=== PATIENT | male | born 1960 | race Caucasian/White ===

== ENCOUNTER 2021-06-16 10:04 | Observation (INO) | payer BC, OTHER ==
[2021-06-16 10:14] VITALS: BMI 30.1
[2021-06-16 12:15] LABS: BASO % 0.7 % (0-2.0); HEMATOCRIT 37.2 % (35.4-49); HEMOGLOBIN 12.3 GM/dL (11.7-16.9); LYMPH % 13.2 % (8-40); MCH 25.8 pg (25.7-33.7); MCHC 33.1 g/dl (32.0-35.9); MEAN CELL VOLUME 77.8 fl (80-96); MEAN PLT VOLUME 7.2 fl (7.5-11.1); MONO % 4.1 % (3.8-10.2); PLATELET COUNT 311 10^3/uL (134-434); RBC 4.78 M/mm3 (4.00-5.60); RDW 16.7 % (11.9-15.9); WHITE BLOOD COUNT 9.1 K/mm3 (4.0-10.0)
[2021-06-16] MEDS ORDERED: LORazepam 2 MG/ML SDV VIAL IVPUSH ONE (12:16)
[2021-06-16] MEDS ORDERED: LORazepam 2 MG/ML SDV VIAL ONE (12:21)
[2021-06-16 12:27] LABS: CHLORIDE 101 mmol/L (98-107); SODIUM 136 mmol/L (136-145)
[2021-06-16 12:30] LABS: CALCIUM 9.1 mg/dL (8.5-10.1)
[2021-06-16 12:31] LABS: ALBUMIN 3.8 g/dl (3.4-5.0); ANION GAP 4 MMOL/L (8-16); BLOOD UREA NITROGEN 9.9 mg/dL (7-18); CO2 30 mmol/L (21-32); GLUCOSE,RANDOM 97 mg/dL (74-106)
[2021-06-16 12:34] LABS: SGOT/AST 15 U/L (15-37); SGPT/ALT 19 U/L (13-61)
[2021-06-16 12:36] LABS: BILIRUBIN,TOTAL 0.9 mg/dL (0.2-1); TOT PROT 7.6 g/dl (6.4-8.2)
[2021-06-16 12:37] LABS: ALK PHOS 100 U/L (45-117)
[2021-06-16] MEDS ORDERED: ASPIRIN 81 MG CHEWABLE TABLETS PO ONE (12:55)
[2021-06-16] MEDS ORDERED: ASPIRIN 81 MG CHEWABLE TABLETS ONE (13:04)
[2021-06-16 14:12] LABS: CHOLESTEROL 215 mg/dL (50-200)
[2021-06-16 14:13] LABS: TRIGLYCERIDES 107 mg/dL (0-150)
[2021-06-16 14:14] LABS: LDL CHOLESTEROL (ONLY SJRH) 141 mg/dL (5-100)
[2021-06-16 14:15] LABS: HDL CHOLESTEROL 46 mg/dL (40-60)
[2021-06-16 14:17] LABS: N-TERMINAL BNP 163.9 pg/ml (5-125)
[2021-06-16] MEDS ORDERED: cloNIDine HCL 0.1 MG TABLET PO ONE (16:10)
[2021-06-16] MEDS ORDERED: SODIUM CHLORIDE 0.9% 500 ML INFUS.BAG IV ONE (16:12)
[2021-06-16] MEDS ORDERED: cloNIDine HCL 0.1 MG TABLET ONE (16:13)
[2021-06-16] MEDS ORDERED: SODIUM CHLORIDE 0.45% 1,000 ML IV SCH (16:30)
[2021-06-16 17:47] LABS: COCAINE, UR NEGATIVE (NEGATIVE); METHADONE, UR NEGATIVE (NEGATIVE); URINE AMPHETAMINES NEGATIVE (NEGATIVE); URINE BARBITURATES NEGATIVE (NEGATIVE)
[2021-06-16 17:48] LABS: PHENCYCLIDINE,URINE NEGATIVE (NEGATIVE)
[2021-06-16 18:02] LABS: OPIATES, URI POSITIVE (NEGATIVE); URINE BENZODIAZEPINES POSITIVE (NEGATIVE)
[2021-06-16] MEDS ORDERED: FAMOTIDINE 20 MG TABLET PO SCH (22:00)
[2021-06-16] MEDS ORDERED: ATORVASTATIN CA 40 MG TABLET (FP) PO SCH (22:00)
[2021-06-17] MEDS ORDERED: cloNIDine HCL 0.1 MG TABLET ONE (00:18)
[2021-06-17] MEDS ORDERED: ATORVASTATIN CA 40 MG TABLET (FP) ONE (00:18)
[2021-06-17] MEDS: cloNIDine HCL 0.1 MG TABLET PO PRN ×2 (00:20→00:21)
[2021-06-17] MEDS ORDERED: LORazepam 1 MG TABLET PO ONE ×2 (02:51→07:06)
[2021-06-17] MEDS ORDERED: LORazepam 1 MG TABLET ONE (02:53)
[2021-06-17 07:46] VITALS: BP 151/85; PULSE 75; TEMP 99.8
[2021-06-17] MEDS ORDERED: ALPRAZolam 0.25 MG TABLET PO PRN (08:33)
[2021-06-17] MEDS ORDERED: ALPRAZolam 0.25 MG TABLET ONE (09:48)
[2021-06-17] MEDS ORDERED: ASPIRIN 81 MG CHEWABLE TABLETS PO SCH (10:00)
== END 2021-06-17 11:08 | disposition home or self-care (01) ==
LOC: JER 10:04 → JERBED 13:52
PROVIDERS: ADMIT Internal Medicine; ATTEND Internal Medicine
PROC: 3E033NZ Introduction of Analgesics, Hypnotics, Sedatives into Peripheral Vein, Percutaneous Approach (ICD-10-PCS; principal; 2021-06-16)
PROC: 3E0337Z Introduction of Electrolytic and Water Balance Substance into Peripheral Vein, Percutaneous Approach (ICD-10-PCS; 2021-06-16)
DX: I25.10 Atherosclerotic heart disease of native coronary artery without angina pectoris (principal); I10 Essential (primary) hypertension; E78.5 Hyperlipidemia, unspecified; F41.8 Other specified anxiety disorders; R10.9 Unspecified abdominal pain; R13.10 Dysphagia, unspecified; R11.0 Nausea; F11.23 Opioid dependence with withdrawal; I24.9 Acute ischemic heart disease, unspecified; R07.9 Chest pain, unspecified; I25.2 Old myocardial infarction; E66.9 Obesity, unspecified; Z68.30 Body mass index [BMI] 30.0-30.9, adult; I11.9 Hypertensive heart disease without heart failure; Z87.891 Personal history of nicotine dependence
CPT/HCPCS: 36415; 71045-TC-FY; 80053; 80061; 80307; 82550; 82553; 83036; 83880; 84436; 84439; 84443; 84484; 85025; 93005; 93010; 96361; 96374; 99285-25; C9803; G0378; J0735; U0003; U0005